=== PATIENT | male | born 1965 | race Caucasian/White ===

== ENCOUNTER 2017-05-09 00:13 | Emergency (ER) | payer OTHER ==
[2017-05-09] MEDS ORDERED: Sodium Chloride 0.9% 1,000 ML IV ONE ×2 (01:49→04:50)
[2017-05-09 01:58] LABS: % BASOPHILS 0.3 % (0.0-2.0); % EOSINOPHILS 4.8 % (0.0-5.0); % LYMPHOCYTES 42.1 % (20.0-50.0); % MONOCYTES 9.2 % (2.0-10.0); % NEUTROPHILS 43.6 % (40.0-80.0); EOSINOPHILE ABSOLUTE 0.2 Th/cmm (0.1-0.4); HEMATOCRIT 38.3 % (41.0-60); HEMOGLOBIN 12.8 gm/dL (12-16); LYMPHOCYTE ABSOLUTE 1.9 Th/cmm (1.5-3.0); MEAN CELL VOLUME 96.5 fl (80-99); MEAN CORPUSCULAR HEMOGLOBIN 32.4 pg (26.0-30.0); MEAN CORPUSCULAR HGB CONC 33.6 pg (28.0-36.0); MEAN PLATELET VOLUME 8.2 fl; MONOCYTE ABSOLUTE 0.4 Th/cmm (0.3-1.0); NEUTROPHILE ABSOLUTE 2.1 Th/cmm (1.8-8.0); PLATELET COUNT 141 Th/cmm (150-400); RED BLOOD COUNT 3.97 Mil/cmm (4.30-5.70); WHITE BLOOD COUNT 4.6 Th/cmm (4.8-10.8)
[2017-05-09] MEDS ORDERED: Thiamine 100 mg/mL 2mL Vial IM STA (02:15)
[2017-05-09 02:17] LABS: ALB/GLOB RATIO 0.7 (1.0-1.8); ALBUMIN 2.9 gm/dL (4.2-5.5); ALKALINE PHOSPHATASE 96 U/L (34-104); ANION GAP 9.3 (7.0-16.0); BILIRUBIN,TOTAL 0.7 mg/dL (0.3-1.0); BUN - UREA NITROGEN 7 mg/dL (7-25); CALCIUM SERUM 8.9 mg/dL (8.6-10.3); CARBON DIOXIDE 25.9 mEq/L (21.0-31.0); CHLORIDE 103 mEq/L (98-107); CREATININE - SERUM 0.6 mg/dL (0.7-1.3); GFR AFRICAN-AMERICAN > 60.0 ml/min (>90); GFR NON AFRICAN-AMERICAN > 60.0 ml/min; GLUCOSE 118 mg/dL (70-105); POTASSIUM SERUM 3.2 mEq/L (3.5-5.1); SGOT 153 U/L (13-39); SGPT/ALT 80 U/L (7-52); SODIUM SERUM 135 mEq/L (136-145); TOTAL PROTEIN,SERUM 7.3 gm/dL (6.0-8.3)
[2017-05-09] MEDS ORDERED: Thiamine 100 mg/mL 2mL Vial ONE (02:18)
[2017-05-09] MEDS ORDERED: Potassium Phosphate 20 MMOLE in Sodium Chloride 0.9% 250 ML IV ONE (02:32)
[2017-05-09] MEDS ORDERED: Potassium Phosphate 40 MMOLE in Sodium Chloride 0.9% 250 ML IV ONE (02:34)
[2017-05-09] MEDS ORDERED: Mag Sulfate 2gm/50mL Premix 2 GM/50 ML BAG IV ONE ×2 (02:35→02:39)
[2017-05-09] MEDS ORDERED: KCL 20mEq/100mL Premix 40 MEQ/200 ML PIGGYBACK IV ONE (02:52)
[2017-05-09] MEDS: KCL 20mEq/100mL Premix 20 MEQ/100 ML PIGGYBACK IV SCH ×2 (02:59→04:38)
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
[2017-05-09 05:14] LABS: AMPHETAMINE URINE POSITIVE (NEGATIVE); METHAMPHETAMINES QUAL URINE POSITIVE (NEGATIVE); OPIATES (MORPHINE) QUAL. URINE POSITIVE (NEGATIVE)
[2017-05-09 05:15] LABS: BARBITURATES URINE NEGATIVE (NEGATIVE); BENZODIAZEPINES QUAL URINE NEGATIVE (NEGATIVE); CANNABINOID THC NEGATIVE (NEGATIVE); COCAINE METABOLITE QUAL URINE NEGATIVE (NEGATIVE); METHADONE URINE POSITIVE (NEGATIVE); PHENCYCLIDINE (PCP) URINE NEGATIVE (NEGATIVE); TRICYCLICS (TCA) QUAL. URINE NEGATIVE (NEGATIVE)
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
== END 2017-05-09 07:00 | disposition home or self-care (01) ==
LOC: ER 00:13
DX: F10.10 Alcohol abuse, uncomplicated (principal)
CPT/HCPCS: 99285; 96365; 96366; 96372; 93005 ×2; 72020; 70450; 70486; 84484; 36415; 80307; 85025; 87086; 80320; 83735; 80053; J3475; J3480; J3411; J7030